=== PATIENT | male | born 1950 ===

== ENCOUNTER 2019-02-15 13:56 | Emergency (ER) | payer MEDICARE, OTHER ==
[2019-02-15] MEDS ORDERED: Bacitracin Oint 1 GM U/D Packet TOP ONE (14:19)
[2019-02-15] MEDS ORDERED: Diphtheria,Pertussis(Acell),Tetanus Vaccine 0.5 ML SDV IM ONE (14:19)
[2019-02-15] MEDS ORDERED: Lidocaine 1% 30 ML SDV INJECT ONE (14:19)
--- NOTE | 2019-02-15 14:45 | EDM.PDOC ---
ED HPI GENERAL MEDICAL PROBLEM - General Chief Complaint: Upper Extremity Injury/Pain Stated Complaint: FISH HOOK RT HAND [id number] Time Seen by Provider: 02/15/19 14:27 Source of Information: Reports: Patient, RN, RN Notes Reviewed History Limitations: Reports: No Limitations - History of Present Illness INITIAL COMMENTS - FREE TEXT/NARRATIVE: Patient presented to ER with complaint of fishhook to right thumb and right index finger. States he was taking a northern off the hook. States he does need a tetanus shot. Onset: Today Location: Reports: Upper Extremity, Right Quality: Reports: Ache Severity: Mild Improves with: Reports: None Worsens with: Reports: None Associated Symptoms: Reports: No Other Symptoms - Related Data Allergies Allergy/AdvReac Type Severity Reaction Status Date / Time No Known Allergies Allergy Verified 02/15/19 14:45 Home Meds: Home Meds . [No Known Home Meds] 02/15/19 [History] Review of Systems - Review of Systems Review Of Systems: ROS reveals no pertinent complaints other than HPI. ED EXAM, GENERAL - Physical Exam Exam: See Below Exam Limited By: No Limitations General Appearance: Alert, WD/WN, No Apparent Distress Eye Exam: Bilateral Eye: EOMI, Normal Inspection, PERRL Ears: Normal External Exam, Normal Canal, Hearing Grossly Normal, Normal TMs Nose: Normal Inspection, Normal Mucosa, No Blood Throat/Mouth: Normal Inspection, Normal Lips, Normal Teeth, Normal Gums, Normal Oropharynx, Normal Voice, No Airway Compromise Head: Atraumatic, Normocephalic Neck: Normal Inspection, Supple, Non-Tender, Full Range of Motion Respiratory/Chest: No Respiratory Distress, Lungs Clear, Normal Breath Sounds, No Accessory Muscle Use, Chest Non-Tender Cardiovascular: Normal Peripheral Pulses, Regular Rate, Rhythm, No Edema, No Gallop, No JVD, No Murmur, No Rub GI/Abdominal: Normal Bowel Sounds, Soft, Non-Tender, No Organomegaly, No Distention, No Abnormal Bruit, No Mass (Male) Exam: Deferred Rectal (Males) Exam: Deferred Back Exam: Normal Inspection, Full Range of Motion, NT Extremities: Normal Inspection, Normal Range of Motion, Non-Tender, Normal Capillary Refill, No Pedal Edema Neurological: Alert, Oriented, CN II-XII Intact, Normal Cognition, Normal Gait, Normal Reflexes, No Motor/Sensory Deficits Psychiatric: Normal Affect, Normal Mood Skin Exam: Other (puncture wounds right index finger and right medial thumb.,) Lymphatic: No Adenopathy ED TRAUMA EXTREMITY PROCEDURES - Foreign Body Removal Indication:: Fish hook embedded in right thumb and index finger. Consent Obtained: Patient Performing Doctor:: Erlinda Saini Anesthesia Type: Local Complications:: No Course - Vital Signs Last Recorded V/S: Last Vital Signs Temp 98.6 F 02/15/19 14:15 Pulse 75 02/15/19 14:15 Resp 16 02/15/19 14:15 BP 177/98 H 02/15/19 14:15 Pulse Ox 97 02/15/19 14:15 - Orders/Labs/Meds Orders: Active Orders 24 hr Category Date Time Status Vaccines to be Administered [RC] PER UNIT ROUTINE Care 02/15/19 14:19 Active Meds: Medications Discontinued Medications Generic Name Dose Route Start Last Admin Trade Name Freq PRN Reason Stop Dose Admin Bacitracin 1 dose 02/15/19 14:19 02/15/19 14:46 Bacitracin Oint 1 Gm TOP 02/15/19 14:20 1 dose ONETIME ONE Administration Diphtheria/Tetanus/Acell Pertussis 0.5 ml 02/15/19 14:19 02/15/19 14:45 Adacel IM 02/15/19 14:20 0.5 ml .ONCE ONE Administration Lidocaine HCl 30 ml 02/15/19 14:19 02/15/19 14:46 Xylocaine-Mpf 1% INJECT 02/15/19 14:20 30 ml ONETIME ONE Administration Departure - Departure Time of Disposition: 14:43 Disposition: Home, Self-Care 01 Condition: Fair Clinical Impression: Fish hook injury of finger of right hand Qualifiers: Encounter type: initial encounter Qualified Code(s): S69.91XA - Unspecified injury of right wrist, hand and finger(s), initial encounter - Discharge Information *PRESCRIPTION DRUG MONITORING PROGRAM REVIEWED*: No *COPY OF PRESCRIPTION DRUG MONITORING REPORT IN PATIENT KEEGAN: No Instructions: Puncture Wound, [id number] Referrals: PCP,Not In Area [Primary Care Provider] - Forms: ED Department Discharge Additional Instructions: Keep area clean and dry Monitor for infection, redness, warmth, drainage Follow up with your primary care facility if necessary - My Orders Last 24 Hours: My Active Orders 02/15/19 14:19 Vaccines to be Administered [RC] PER UNIT ROUTINE - Assessment/Plan Last 24 Hours: My Active Orders 02/15/19 14:19 Vaccines to be Administered [RC] PER UNIT ROUTINE
== END 2019-02-15 15:01 | disposition home or self-care (01) ==
LOC: DL.ED 13:56
DX: S61.240A Puncture wound with foreign body of right index finger without damage to nail, initial encounter (principal); S61.041A Puncture wound with foreign body of right thumb without damage to nail, initial encounter; Z23 Encounter for immunization; W45.8XXA Other foreign body or object entering through skin, initial encounter
CPT/HCPCS: 90471; 90715; 99283; J2001